=== PATIENT | female | born 1945 | race Caucasian/White ===

== ENCOUNTER 2017-12-12 22:17 | Emergency (ER) | payer OTHER ==
[~2017-12-12] VITALS: Ht 149.9 cm; Wt 76.2 kg
[2017-12-12 22:33] VITALS: Ht 149.9 cm; Wt 76.2 kg
[2017-12-13] VITALS: BP 135/69
== END 2017-12-13 | disposition home or self-care (01) ==
LOC: ED 22:17
DX: S83.92XA Sprain of unspecified site of left knee, initial encounter (principal); I10 Essential (primary) hypertension; E78.00 Pure hypercholesterolemia, unspecified; Z88.0 Allergy status to penicillin; Z88.8 Allergy status to other drugs, medicaments and biological substances; W01.0XXA Fall on same level from slipping, tripping and stumbling without subsequent striking against object, initial encounter; Y93.89 Activity, other specified; Y92.89 Other specified places as the place of occurrence of the external cause; Y99.8 Other external cause status